=== PATIENT | male | born 1985 | race Caucasian/White ===

== ENCOUNTER 2024-11-14 22:00 | Emergency (ER) | payer OTHER ==
[2024-11-14 22:14] VITALS: BMI 49.3
[2024-11-15] MEDS ORDERED: ONDANSETRON 4 MG/2 ML VIAL ONE (00:01)
[2024-11-15] MEDS ORDERED: ACETAMINOPHEN INJECTION 100 ML ONE (00:01)
[2024-11-15] MEDS: ONDANSETRON 4 MG/2 ML VIAL IVPUSH ONE (00:20)
[2024-11-15] MEDS: SODIUM CHLORIDE 0.9% 1000 ML INFUS.BAG IV ONE (00:20)
[2024-11-15] MEDS: ACETAMINOPHEN 1000 MG/100 ML BAG IVPB ONE (00:20)
[2024-11-15] MEDS: LACTATED RINGERS SOLUTION 1000 ML INFUS.BAG IV ONE ×2 (00:35→01:53)
[2024-11-15 01:29] LABS: ABSOLUTE IMMATURE GRANULOCYTES 0.05 x10^3/uL (0.0-0.031); BASOPHILS # 0.02 x10^3/uL (0.01-0.08); EPI CELLS 7 /uL (0-25.1); HEMOGLOBIN 14.9 g/dL (13.7-17.5); HYALINE CASTS 2 /uL (0-3.1); MCHC 32.4 g/dl (32.3-36.5); MEAN CELL VOLUME 93.5 fl (79.0-92.2); MEAN PLT VOLUME 10.9 fl (9.4-12.4); MONOCYTE # 1.16 x10^3/uL (0.30-0.82); MONOCYTE % 12.1 % (5.3-12.2); PH,URINE 6.5 (5.0-8.0); PLATELET COUNT 144 x10^3/uL (163-337); RDW 12.9 % (12.0-15.6); URINE APPEARANCE CLEAR; URINE BACTERIA 3 /uL (0-1359); URINE BILIRUBIN NEGATIVE (NEGATIVE); URINE COLOR DK YELLOW; URINE GLUCOSE (UA) NEGATIVE (NEGATIVE); URINE KETONE 2+ (NEGATIVE); URINE LEUK ESTERASE NEGATIVE (NEGATIVE); URINE NITRITE NEGATIVE (NEGATIVE); URINE PROTEIN 1+ (NEGATIVE); URINE RBC 27 /uL (0-23.9); URINE WBC 22 /uL (0-25.8)
[2024-11-15 01:45] LABS: POTASSIUM 3.5 mmol/L (3.5-5.1)
[2024-11-15 01:48] LABS: CALCIUM 8.9 mg/dL (8.5-10.1)
[2024-11-15 01:52] LABS: CREATININE 1.2 mg/dL (0.55-1.3)
[2024-11-15 01:53] LABS: BILIRUBIN,TOTAL 0.5 mg/dL (0.2-1); TOT PROT 7.9 g/dl (6.4-8.2)
[2024-11-15 01:55] VITALS: BP 94/55; PULSE 88; RESP 18; TEMP 99.5
[2024-11-15] MEDS ORDERED: cefTRIAXone SODIUM 1 GM VIAL ONE (01:56)
[2024-11-15] MEDS: CEFTRIAXONE 1,000 MG in DEXTROSE 5%-WATER - 50 ML IVPB ONE (02:03)
[2024-11-15 02:41] LABS: HIV INTERPRETATION NEGATIVE (NEGATIVE)
[2024-11-15 02:42] LABS: HCV DIAGNOSTIC IN-HOUSE W/RFLX NON-REACTIVE (NONREACTIVE)
[2024-11-15] MEDS ORDERED: AMOX TR/POT CLAV 875MG/125MG TABLETS (FP) ONE (02:49)
[2024-11-15] MEDS: AMOX TR/POT CLAV 875MG/125MG TABLETS (FP) PO ONE (02:58)
== END 2024-11-15 03:48 | disposition home or self-care (01) ==
LOC: FER 22:00
PROC: 3E03329 Introduction of Other Anti-infective into Peripheral Vein, Percutaneous Approach (ICD-10-PCS; principal; 2024-11-14)
PROC: 3E033NZ Introduction of Analgesics, Hypnotics, Sedatives into Peripheral Vein, Percutaneous Approach (ICD-10-PCS; 2024-11-14)
PROC: 3E033GC Introduction of Other Therapeutic Substance into Peripheral Vein, Percutaneous Approach (ICD-10-PCS; 2024-11-14)
DX: J02.0 Streptococcal pharyngitis (principal); E86.0 Dehydration; R50.9 Fever, unspecified; M79.10 Myalgia, unspecified site; R11.2 Nausea with vomiting, unspecified; R05.9 Cough, unspecified; R00.0 Tachycardia, unspecified; B00.1 Herpesviral vesicular dermatitis
CPT/HCPCS: 0241U-QW; 36415; 71046-TC-FY; 80053; 81003; 83605; 83690; 85025; 86803; 87086; 87389; 87651; 99284-25